=== PATIENT | female | born 1980 | race Two or more races ===

== ENCOUNTER 2018-04-24 18:29 | Inpatient (IN) | payer SELFPAY ==
[~2018-04-24] VITALS: Ht 170.2 cm; Wt 83.8 kg
[2018-04-24 21:26] LABS: Basophils # (auto) 0.1 uL; Basophils % (auto) 0.7 % (0.0-2.0); Eosinophils # (auto) 0.1 uL; Eosinophils % (auto) 0.9 % (0.0-7.0); Hematocrit 37.9 % (36.0-46.0); Hemoglobin 12.8 g/dL (12.2-16.2); Lymphocytes # (auto) 1.4 uL; Lymphocytes % (auto) 15.6 % (10.0-50.0); Mean Corpuscular Hemoglobin 27.1 pg (28.0-32.0); Mean Corpuscular Hgb Conc. 33.8 g/dL (32.0-36.0); Mean Corpuscular Volume 80.2 fL (80.0-100.0); Monocytes % (auto) 11.6 % (0.0-12.0); Neutrophils # (auto) 6.3 uL; Neutrophils % (auto) 71.2 % (37.0-80.0); Platelet Count (auto) 169 10^3/uL (140-450); Red Blood Cells 4.72 10^6/uL (4.0-5.20); Red Cell Distribution Width 16.2 % (11.8-14.3); White Blood Cell 8.9 10^3/uL (4.4-10.8)
[2018-04-24 21:45] LABS: Alanine Aminotransferase 37 U/L (13-56); Anion Gap 7 (5-15); Aspartate Aminotransferase 21 U/L (15-37); BUN/Creatinine Ratio 9.7; Blood Urea Nitrogen 10 mg/dL (7-18); Calcium 8.7 mg/dL (8.5-10.1); Carbon Dioxide 26 mmol/L (21-32); Chloride 103 mmol/L (98-107); Glucose 115 mg/dL (74-106); Potassium 3.9 mmol/L (3.5-5.1); Sodium 136 mmol/L (136-145)
[2018-04-24 21:48] LABS: Alkaline Phosphatase 75 U/L (45-117); Bilirubin, Total 0.4 mg/dL (0.2-1.0); Total Protein 7.4 g/dL (6.4-8.2)
[2018-04-24 22:05] LABS: GFR African American > 60 mL/min; GFR Non-African American > 60 mL/min
[2018-04-24 23:05] LABS: Urine Bacteria NONE SEEN /hpf (None Seen); Urine Blood Negative /uL (Negative); Urine Mucus FEW (None Seen); Urine WBC 8 /hpf (0 - 5)
[2018-04-24 23:19] LABS: Alcohol, Urine < 3.0 mg/dL (0-5); Amphetamine Screen, Urine NEGATIVE (NEGATIVE); Barbiturate Scree,Urine POSITIVE (NEGATIVE); Benzodiazephine Screen, Urine NEGATIVE (NEGATIVE); Cannabinoid Screen, Urine NEGATIVE (NEGATIVE); Cocaine Screen, Urine NEGATIVE (NEGATIVE); Opiate Scree,Urine POSITIVE (NEGATIVE); Phencyclidine Screen, Urine NEGATIVE (NEGATIVE)
[2018-04-25] MEDS ORDERED: HYDROcodone-ACET 10/325MG TAB PO ONE (01:15)
[2018-04-25] MEDS ORDERED: cefTRIAXone 1GM/50ML D5W 50 ML IV ONE ×2 (01:23→10:00)
[2018-04-25] MEDS ORDERED: cloNIDine HCL 0.1 MG TAB ONE (02:41)
[2018-04-25] MEDS ORDERED: cloNIDine HCL 0.1 MG TAB PO ONE (02:45)
[2018-04-25] MEDS ORDERED: ACETAMINOPHEN 325 MG TAB PO PRN (04:15)
[2018-04-25] MEDS ORDERED: TEMAZEPAM 15 MG CAP PO PRN (04:15)
[2018-04-25] MEDS ORDERED: ONDANSETRON HCL 4 MG/2 ML VIAL IV PRN (04:15)
[2018-04-25] MEDS ORDERED: cloNIDine HCL 0.1 MG TAB PO PRN (04:15)
[2018-04-25] MEDS ORDERED: VANCOMYCIN PER PHARMACY 0 MG IV SCH (04:30)
[2018-04-25] MEDS ORDERED: VANCOMYCIN 1GM/250ML 250 ML IV ONE (05:00)
[2018-04-25] MEDS ORDERED: CLINDAMYCIN 600MG IV 50 ML IV SCH (06:00)
[2018-04-25] MEDS ORDERED: PIPERACILLIN-TAZOB 3.375GM 100 ML IV ONE ×2 (06:00→08:00)
[2018-04-25] MEDS: FAMOTIDINE 20 MG TAB PO SCH ×2 (07:14→17:25)
[2018-04-25 10:35] VITALS: BP 148/104
--- NOTE | 2018-04-25 11:00 | NUR ---
ADMISSION PHOTO IS TAKEN TO PT RT FOREARM
--- NOTE | 2018-04-25 11:00 | NUR ---
IV insertion IV access obtained, via clean sterile technique by inserting 22 gauge catheter at after attempt(s). IV secured properly. No trauma to site. Patient tolerated procedure well. OLD IV REMOVED, PT SATED ITS HURTING ME
--- NOTE | 2018-04-25 11:15 | NUR ---
SURGICAL CONSULT DR STINSON AT BED SIDE ASSESSING PT RT FOREARM, AND EXPLAIN THE INCISION AND DRAINAGE PROCEDURE TO PATIENT, PT VERBALIS UNDERSTANDING.
[2018-04-25 13:25] VITALS: BP 164/92
--- NOTE | 2018-04-25 14:58 | NUR ---
TRANSFER PATIENT TO PRE OP, THANG BRENNAN AT HER SIDE, PT V/S 177/106 HR 136 TEMP 101, DR STINSON IS AWARE
[2018-04-25] MEDS ORDERED: fentaNYL CITRATE 100 MCG/2 ML VL ONE (15:32)
[2018-04-25] MEDS ORDERED: MIDAZOLAM HCL 1MG/1ML-2 ML VIAL ONE (15:32)
[2018-04-25 15:47] LABS: INR 0.97 (0.9-1.15); Partial Thromboplastin Time 28.9 sec (23.78-33.04); Prothrombin Time 10.4 sec (9.27-12.13)
[2018-04-25] MEDS ORDERED: METOCLOPRAMIDE HCL 5MG/ml INJ 2ml VIAL ONE (15:54)
[2018-04-25] MEDS ORDERED: PROPOFOL 10 MG/ML 20 ML IV ONE (15:54)
[2018-04-25] MEDS ORDERED: HYDROmorphone HCL 2 MG/ML VL ONE (16:40)
[2018-04-25] MEDS ORDERED: HYDROmorphone HCL 2 MG/ML VL IV PRN (16:45)
[2018-04-25] MEDS ORDERED: KETOROLAC TROMETH 30 MG/ML 1ML VIAL IV ONE (16:45)
[2018-04-25] MEDS ORDERED: LABETALOL HCL 5 MG/ML 4ML SYRINGE IV PRN (16:45)
[2018-04-25] MEDS ORDERED: ONDANSETRON HCL 4 MG/2 ML VIAL IV ONE (16:45)
[2018-04-25] MEDS ORDERED: MORPHINE SULFATE 4 MG/ML SYR/VIAL IV PRN (16:45)
[2018-04-25] MEDS ORDERED: ePHEDrine SULFATE 50 MG/ML AMP IV PRN (16:45)
[2018-04-25] MEDS ORDERED: MIDAZOLAM HCL 1MG/1ML-2 ML VIAL IV PRN (16:45)
--- NOTE | 2018-04-25 17:00 | NUR ---
PT IS BACK TO HER ROOM, BY HOSPITAL BED, ALERT ORIENTED X4, DRY KERLIX NOTED ON HER RT FOREARM, VITAL SIGNS STABLE, PAIN 4/10, CALL LIGHT WITHIN REACH.
[2018-04-25 17:07] VITALS: BP 132/84
--- NOTE | 2018-04-25 17:19 | NUR ---
PT IS TEXTING HER MOM, TO LET HER KNOW THAT SHE IS BACK TO HER ROOM.
[2018-04-25] MEDS: HYDROcodone-ACET 5/325MG TAB PO PRN (17:25)
[2018-04-25] MEDS ORDERED: MORPHINE SULFATE 4 MG/ML SYR/VIAL IV ONE (18:00)
--- NOTE | 2018-04-25 18:21 | NUR ---
PT CONTINUE STABLE, CONTINUE MONITORING.
--- NOTE | 2018-04-25 19:00 | NUR ---
ASSUMED PATIENT CARE- NOC SHIFT PATIENT IS ALERT AND ORIENTED X4, ANSWERS IN COMPLETE SENTENCES AND MAKES APPROPRIATE EYE CONTACT. PATIENT DRESSING TO RIGHT ARM IS DRY AND INTACT. PATIENT DENIES PAIN AT THIS TIME. PATIENT IS IN BED, BED IS LOCKED IN LOWEST POSITION. BED RAILS UP X2 AND HEAD OF BED IS UP <30 DEGREES FOR SAFETY PRECAUTIONS. BEDSIDE TABLE WITHIN REACH, CALL LIGHT WITHIN REACH. INSTRUCTED PATIENT TO CALL PRN. WILL CONTINUE TO MONITOR Q1H AND PRN.
[2018-04-25 22:01] VITALS: BP 126/51
[2018-04-25] MEDS: VANCOMYCIN 1GM/250ML 250 ML IV SCH (22:06)
--- NOTE | 2018-04-25 23:00 | NUR ---
POSITIVE BLOOD CULTURE GRAM POSITIVE [facility]I IN [facility]; HOSPITALIST JEFFERSON SUMMERS.
[2018-04-26] MEDS: HYDROcodone-ACET 5/325MG TAB PO PRN ×3 (04:53→21:56)
[2018-04-26 05:00] VITALS: BP_SYST 127; BP_SYST 149; BP_DIAS 79; BP_DIAS 84
--- NOTE | 2018-04-26 05:01 | NUR ---
IV removal PATIENT COMPLAINING OF PAIN AT IV SITE TO LEFT FOREARM IV DC'd with clean sterile technique, catheter fully intact. Pressure dressing applied to site. Patient tolerated well.
[2018-04-26 05:37] LABS: Basophils # (auto) 0 uL; Eosinophils # (auto) 0.1 uL; Hematocrit 34.5 % (36.0-46.0); Hemoglobin 11.7 g/dL (12.2-16.2); Lymphocytes # (auto) 1.3 uL; Monocytes # (auto) 0.5 uL; Red Cell Distribution Width 16.3 % (11.8-14.3)
[2018-04-26 05:39] LABS: Basophils % (auto) 0.7 % (0.0-2.0); Eosinophils % (auto) 2.3 % (0.0-7.0); Lymphocytes % (auto) 23.5 % (10.0-50.0); Mean Corpuscular Hemoglobin 26.7 pg (28.0-32.0); Mean Corpuscular Volume 78.6 fL (80.0-100.0); Monocytes % (auto) 9.5 % (0.0-12.0); Neutrophils # (auto) 3.4 uL; Platelet Count (auto) 189 10^3/uL (140-450); Red Blood Cells 4.39 10^6/uL (4.0-5.20); White Blood Cell 5.4 10^3/uL (4.4-10.8)
[2018-04-26 05:53] LABS: Anion Gap 6 (5-15); BUN/Creatinine Ratio 13.2; Blood Urea Nitrogen 9 mg/dL (7-18); Calcium 8.7 mg/dL (8.5-10.1); Carbon Dioxide 27 mmol/L (21-32); Chloride 106 mmol/L (98-107); GFR African American > 60 mL/min; GFR Non-African American > 60 mL/min; Glucose 100 mg/dL (74-106); Potassium 4.3 mmol/L (3.5-5.1); Sodium 139 mmol/L (136-145)
[2018-04-26] MEDS: FAMOTIDINE 20 MG TAB PO SCH ×2 (06:21→16:50)
--- NOTE | 2018-04-26 06:22 | NUR ---
IV insertion IV access obtained, via clean sterile technique by inserting 22 gauge catheter at after 2 attempt(s). IV secured properly. No trauma to site. Patient tolerated well.
--- NOTE | 2018-04-26 08:00 | NUR ---
Opening Shift Note Assumed care of patient, awake, alert and oriented X4. No S/S of distress/SOB, complains of pain, to right upper arm, 06/10, Diego Cedeño, verbalized tolerable. Right upper arm dressing clean, dry and intact. IV to left forearm, 22 gauge, patent and saline locked. Instructed on POC and to call for assist PRN, verbalized understanding. Bed locked, in lowest position, call light within reach, will continue to monitor for changes Q1hr and PRN.
[2018-04-26 08:28] VITALS: BP 142/89
--- NOTE | 2018-04-26 09:17 | NUR ---
Patient complaining of redness and itching to IV site, left forearm. Currently infusing Rocephin 1 gram. Medication stopped, flushed with 10 ml's of 0.9% NS. no further complaints at this time, V/S WNL 142/89, 88, 20, 97% 98.4. Dr Eder lynch, awaiting return call, will continue to monitor Q1 hour and PRN.
[2018-04-26] MEDS ORDERED: diphenhdrAMINE HCL 50 MG/1 ML VL IV ONE (09:30)
--- NOTE | 2018-04-26 09:30 | NUR ---
Return call received from Dr Gaines, updated on reason for call, verbalized understanding. New orders received and followed through. Patient remains with red line and itching to left forearm, s/p Rocephin infusion. Benadryl 50mg IVP administered. Will continue to monitor Q1 hour and PRN.
[2018-04-26] MEDS ORDERED: diphenhdrAMINE HCL 50 MG/1 ML VL ONE (09:39)
--- NOTE | 2018-04-26 10:01 | NUR ---
IV removal IV DC'd to left forearm due to complains of redness and itching, with clean sterile technique, catheter fully intact. Pressure dressing applied to site. Patient tolerated well. IV insertion IV access obtained, via clean sterile technique by inserting 20 gauge catheter at right wrist after 1 attempt. IV secured properly. No trauma to site. Patient tolerated well.
[2018-04-26] MEDS: cefTRIAXone 1GM/50ML D5W 50 ML IV SCH (10:03)
[2018-04-26] MEDS: VANCOMYCIN 1GM/250ML 250 ML IV SCH ×2 (10:08→21:56)
--- NOTE | 2018-04-26 11:15 | NUR ---
SURGICAL Dr Corbett at bedside for surgical follow up.
[2018-04-26 12:04] VITALS: BP 133/80
[2018-04-26 16:57] VITALS: BP 126/42
--- NOTE | 2018-04-26 17:05 | NUR ---
ROUNDS Dr Gaines at bedside for rounds, new orders received and followed through. Patient updated on plan of care, verbalized understanding.
--- NOTE | 2018-04-26 17:56 | NUR ---
WOUND CARE NOTE: Wound care in to see patient per wound care request regarding Rt forearm wounds s/p I&D. Patient is 38 years old female with admitting diagnosis of R Forearm cellulitis. Bedside nurse took photograph of patient's wound upon admission for reference. Patient is resting in bed in Rm. 234. She's awake, alert and oriented. Patient is premedicated for pain by her bedside nurse prior dressing change. She's ambulatory and self turn and reposition. Her current Zia score is 21. Patient undergone I&D of Rt arm abscess by Dr. Corbett yesterday 04/25/18. Dr. Corbett order to remove wound packing and irrigate wounds with H2O2 TID. Removed wound dressing to patient's Rt forearm. Patient's R forearm has two linear incision. Irrigated wounds with Hydrogen Peroxide to wet the packing, removed packing and irrigated again with hydrogen peroxide, patted dry with sterile gauze. New photograph of wounds are taken for reference. Covered wounds with layers of sterile 4x4's gauze, wrapped with Kerlix and secured with tape. Patient tolerated well. No further wound care monitoring needed at this time. Bedside nurse to continue TID irrigation of wounds per MD order. RECOMMENDATION: TID/PRN Irrigation of wounds/dressing change to Rt. forearm wounds per MD order, skin/wound preventative plan of care. Addendum: 04/26/18 at 1830 by Edilma Daley RN Amended: Links added.
--- NOTE | 2018-04-26 19:00 | NUR ---
ASSUMED PATIENT CARE - NOC SHIFT PATIENT IS IN BED. BED IS LOCKED IN LOWEST POSITION. BED RAILS UP X2, HEAD OF BED IS UP >30 DEGREES FOR SAFETY PRECAUTIONS. BEDSIDE TABLE WITHIN REACH, CALL LIGHT WITHIN REACH. DISCUSSED POC WITH PATIENT AND INSTRUCTED PATIENT TO CALL PRN; PATIENT VERBALIZED UNDERSTANDING. WILL CONTINUE TO MONITOR Q1H AND PRN. PATIENT STATES THAT SHE FEELS BETTER TODAY. SHE STATES THAT HER PAIN IS TOLERABLE AT 4/10.
--- NOTE | 2018-04-26 19:35 | NUR ---
Care endorsed to ANU Reveles, night nurse.
[2018-04-26 22:00] VITALS: BP 127/79
--- NOTE | 2018-04-27 | NUR ---
ROUNDS PATIENT IS RESTING, EYES CLOSED. BREATHING IS EVEN AND UNLABORED. WILL CONTINUE TO MONITOR Q1H AND PRN.
[2018-04-27 05:00] VITALS: BP 142/73
[2018-04-27] MEDS: FAMOTIDINE 20 MG TAB PO SCH (07:00)
[2018-04-27] MEDS: HYDROcodone-ACET 5/325MG TAB PO PRN (07:01)
--- NOTE | 2018-04-27 08:00 | NUR ---
RECEIVED PT RESTING IN BED, CALL LIGHT WITHIN REACH, PT REPORTS MILD PAIN ON RT ARM OF 3/10, RT ARM DRESSING CHANGED. CLEAN WOUNDS WITH NORMAL SALINE, COVERED WITH GAUZE, AND WRAPPED WITH KERLIX, WILL CONTINUE TO MONITOR PT.
[2018-04-27 08:45] VITALS: BP 141/99
[2018-04-27] MEDS: cefTRIAXone 1GM/50ML D5W 50 ML IV SCH (09:00)
[2018-04-27 09:54] LABS: Anion Gap 8 (5-15); Blood Urea Nitrogen 10 mg/dL (7-18); Calcium 8.9 mg/dL (8.5-10.1); Carbon Dioxide 26 mmol/L (21-32); Chloride 105 mmol/L (98-107); GFR African American > 60 mL/min; GFR Non-African American > 60 mL/min; Glucose 86 mg/dL (74-106); Potassium 3.6 mmol/L (3.5-5.1); Sodium 139 mmol/L (136-145)
[2018-04-27] MEDS: VANCOMYCIN 1GM/250ML 250 ML IV SCH (10:08)
--- NOTE | 2018-04-27 10:30 | NUR ---
PT'S IV IS INFILTRATED, PLACED A NEW IV, LT FOREARM 20 GAUGE,
[2018-04-27 11:41] VITALS: BP 150/86
[2018-04-27 11:50] VITALS: BP 141/99
--- NOTE | 2018-04-27 12:23 | NUR ---
Discharge instructions given as ordered. Encourage to follow up with PMD as instructed. Pt has no pcp, pt was schedule a follow up appt with Dr. Corbett on 05/08/2018 at 10:15am [place] [id number], ext. [phone]. Pt was given information for [facility] public health office. pt was also given the [facility] urgent care coupon and information. All questions and concerns addressed. Patient verbalized understanding. Medication reconciliation form completed and copy given to patient. No home medications held in Pharmacy, and no needed vaccines to be given. IV removed with catheter intact, pressure dressing applied.
--- NOTE | 2018-04-27 13:40 | NUR ---
Patient taken to vehicle via wheelchair with all personal belongings, accompanied by staff and family member. No distress noted at time of departure.
[2018-04-27] MEDS ORDERED: VANCOMYCIN 1GM/250ML 250 ML IV SCH (18:00)
== END 2018-04-27 14:31 | disposition home or self-care (01) | DRG 872 ==
LOC: ER 18:29 → EEVIPCON 04-25 04:30 → OVERFLOW 04-25 04:30 → EAST 04-25 10:40
PROVIDERS: ADMIT Nurse Practitioner; ATTEND Internal Medicine
PROC: 0X9D3ZZ Drainage of Right Lower Arm, Percutaneous Approach (ICD-10-PCS; principal; 2018-04-25 15:28)
DX: A41.01 Sepsis due to Methicillin susceptible Staphylococcus aureus (principal); L03.113 Cellulitis of right upper limb; L02.413 Cutaneous abscess of right upper limb; I10 Essential (primary) hypertension; I89.0 Lymphedema, not elsewhere classified
CPT/HCPCS: 36415; 73090; 73200; 80048; 80053; 80202; 80307; 81001; 81025; 83605; 85025; 85610; 85730; 87040; 87070; 87075; 87077; 87186; 87205; 93971; 96365; 96367; G0378; J0696; J2250; J2543; J2704